=== PATIENT | male | born 1970 ===

== ENCOUNTER 2018-10-28 23:14 | Emergency (ER) | payer OTHER ==
[~2018-10-28] VITALS: Ht 172.7 cm; Wt 70.3 kg
[~2018-10-28 23:14] MED LIST: CEFTIN500 MG PO; DOLOGESIC CAPLE1 TAB PO; GLYCOTROL CAPS1 EACH PO; MULTI-DAY1 TAB PO; OSTERA TABLET1 EACH PO
[2018-10-29] MEDS ORDERED: AIRBORNE EFFER1 EACH PO (03:48)
[2018-10-29] MEDS ORDERED: PROMETH-CODEIN 65 ML PO (03:48)
== END 2018-10-29 04:04 | disposition home or self-care (01) ==
LOC: ER 23:14
DX: J11.1 Influenza due to unidentified influenza virus with other respiratory manifestations (principal)